=== PATIENT | female | born 1965 | race Caucasian/White ===

== ENCOUNTER 2018-01-24 18:36 | Emergency (ER) | payer OTHER ==
[~2018-01-24] VITALS: Ht 165.1 cm; Wt 73.0 kg
[~2018-01-24 18:36] MED LIST: ALPR1TAB2 PO; ASPI-621 PO; ATOR40TA78 PO; CEFD300C37 PO; HYDR-3240 PO; HYDR25TA6 PO; METO25TA35 PO; NICO-486 TD; NITR0.4T SL; OXYC1TAB7 PO; PARO20TA98 PO; PRAS10TA4 PO; TEMA15CA6 PO; TIZA2TAB PO
[2018-01-24] MEDS ORDERED: ZIPRASIDONE 20 MG INJ IM ONE ×2 (20:04→20:30)
[2018-01-24] MEDS: PLEASE ENTER HEIGHT AND WEIGHT MC SCH (20:30)
[2018-01-24 22:43] LABS: BASOPHILS # (AUTO) 0.02 x10^3/uL (0-0.1); BASOPHILS % (AUTO) 0 % (0-1); EOSINOPHILS # (AUTO) 0.11 x10^3/uL (0-0.4); EOSINOPHILS % (AUTO) 2 % (1-7); LYMPHOCYTES % (AUTO) 23 % (22-44); MD NO; MEAN CORPUSCULAR HEMOGLOBIN 30.8 pg (27.0-34.8); MEAN CORPUSCULAR HGB CONC 34.4 g/dL (32.4-35.8); MEAN CORPUSCULAR VOLUME 89.6 fL (80-100); MEAN PLATELET VOLUME 8.6 fL (7.4-10.4); MONOCYTES # (AUTO) 0.34 x10^3/uL (0.2-0.8); MONOCYTES % (AUTO) 5 % (2-9); NEUTROPHILS # (AUTO) 4.33 x10^3/uL (1.8-6.8); NEUTROPHILS % (AUTO) 70 % (42-75); PLATELET COUNT 192 x10^3/uL (130-400); RED BLOOD COUNT 5.01 x10^6/uL (3.82-5.3); RED CELL DISTRIBUTION WIDTH 13.7 % (9.6-15.2)
[2018-01-24 22:54] LABS: ALANINE AMINOTRANSFERASE 15 U/L (12-78); ALBUMIN 3.8 g/dL (3.4-5.0); ANION GAP 8 mmol/L (5-15); CALCIUM 8.9 mg/dL (8.5-10.1); CHLORIDE 113 mmol/L (98-107); CREATININE 0.61 mg/dL (0.55-1.02); SALICYLATE LEVEL 5.5 mg/dL (2.8-20.0)
[2018-01-24 23:04] LABS: ALKALINE PHOSPHATASE 81 U/L (45-117); BILIRUBIN,TOTAL 0.5 mg/dL (0.2-1.0); TOTAL PROTEIN 7.1 g/dL (6.4-8.2)
[2018-01-24 23:05] LABS: ACETAMINOPHEN < 2 mcg/mL (10-30)
[2018-01-25] MEDS: PLEASE ENTER HEIGHT AND WEIGHT MC SCH ×3 (04:30→20:30)
[2018-01-25] MEDS ORDERED: ACETAMINOPHEN 325 MG TABLET ONE (07:24)
[2018-01-25] MEDS ORDERED: ACETAMINOPHEN 325 MG TABLET PO ONE (07:30)
[2018-01-25] MEDS ORDERED: ZIPRASIDONE 20 MG INJ IM ONE ×4 (07:33→22:34)
[2018-01-25] MEDS ORDERED: ALPR2TAB2 PO (10:33)
[2018-01-25] MEDS ORDERED: EFFIENT PO (10:33)
[2018-01-25] MEDS ORDERED: METO25TA35 PO (10:33)
[2018-01-25] MEDS ORDERED: TEMA30CA6 PO (10:33)
[2018-01-25] MEDS ORDERED: ATOR20TA9 PO (10:33)
[2018-01-25] MEDS ORDERED: ASPI-515 PO (10:33)
[2018-01-25] MEDS ORDERED: NITR0.4T SL (10:33)
[2018-01-25 22:25] LABS: AMPHETAMINE SCREEN, URINE Positive (Negative); BARBITURATE SCREEN, URINE Negative (Negative); BENZODIAZEPINE SCREEN, URINE Positive (Negative); CANNABINOID SCREEN, URINE Negative (Negative); COCAINE SCREEN, URINE Negative (Negative); METHADONE SCREEN, URINE Negative (Negative); OPIATE SCREEN, URINE Negative (Negative)
[2018-01-25] MEDS: ZIPRASIDONE 20 MG INJ IM PRN (22:38)
[2018-01-26] MEDS: PLEASE ENTER HEIGHT AND WEIGHT MC SCH (04:30)
[2018-01-26] MEDS ORDERED: ZIPRASIDONE 20 MG INJ IM ONE (07:23)
[2018-01-26] MEDS: ZIPRASIDONE 20 MG INJ IM PRN (07:38)
[2018-01-26] MEDS ORDERED: LORazepam 1MG TABLET ONE ×2 (12:17→17:33)
[2018-01-26] MEDS ORDERED: LORazepam 1MG TABLET PO ONE ×2 (12:30→18:00)
[2018-01-26] MEDS ORDERED: LIPITOR (17:24)
[2018-01-27] MEDS ORDERED: ZIPRASIDONE 20 MG INJ IM ONE ×3 (02:18→10:00)
[2018-01-27 12:35] VITALS: BP 182/117
[2018-01-27] MEDS ORDERED: LORazepam 1MG TABLET PO ONE (14:30)
[2018-01-27] MEDS ORDERED: LORazepam 1MG TABLET ONE (14:36)
== END 2018-01-27 19:56 | disposition left against medical advice (07) ==
LOC: ED 21:22
DX: F23 Brief psychotic disorder (principal); R44.3 Hallucinations, unspecified; F32.3 Major depressive disorder, single episode, severe with psychotic features; I10 Essential (primary) hypertension; I25.2 Old myocardial infarction; Z88.0 Allergy status to penicillin; Z79.899 Other long term (current) drug therapy
CPT/HCPCS: 36415; 80053; 80307; 80329; 84443; 85025; 93005; 96372; 99285; J3486; G0480